=== PATIENT | female | born 1990 | race Caucasian/White ===

== ENCOUNTER 2019-02-11 21:53 | Emergency (ER) | payer BC, OTHER ==
[~2019-02-11] VITALS: Ht 162.6 cm; Wt 80.7 kg
[~2019-02-11 21:53] MED LIST: ACYCLOVIR 200200 MG PO; BENADRYL25 MG PO; CIPROFLOXACIN500 M1 PO; IBUPROFEN 600600 M1 PO; NOHOMEMEDICATIONS; NORCO 5-325 TA1 EACH PO; PREDNISONE50 MG PO
[2019-02-11] MEDS ORDERED: TRAMADOL 50 MG50 MG PO (23:19)
[2019-02-11] MEDS ORDERED: NAPROSYN500 MG PO (23:19)
[2019-02-11 23:34] VITALS: BP 111/67
== END 2019-02-11 23:40 | disposition home or self-care (01) ==
LOC: ER 21:53
DX: S96.812A Strain of other specified muscles and tendons at ankle and foot level, left foot, initial encounter (principal); S83.8X2A Sprain of other specified parts of left knee, initial encounter; Z90.49 Acquired absence of other specified parts of digestive tract; W10.8XXA Fall (on) (from) other stairs and steps, initial encounter; Y93.89 Activity, other specified; Y92.89 Other specified places as the place of occurrence of the external cause; Y99.8 Other external cause status